=== PATIENT | female | born 1950 | race Caucasian/White ===

== ENCOUNTER 2023-03-16 14:46 | Emergency (ER) | payer MEDICARE, SELFPAY ==
[2023-03-16] VITALS (36 sets, daily range): BP systolic 94–131; BP diastolic 57–86; PULSE 62–125; RESP 14–31; TEMP 36.8–38.2; O2SAT 86–97; BMI 21.7
--- NOTE | 2023-03-16 15:08 | DI.RAD.S_ITS ---
PROCEDURE: XR CHEST 1V INDICATIONS: suspected sepsis TECHNIQUE: One view of the chest was acquired. COMPARISON: None. FINDINGS: Surgical changes and devices: None. Lungs and pleura: There is pulmonary vascular congestion. Small to moderate left pleural effusion and trace right pleural effusion are seen with bibasilar atelectasis. No definite focal infiltrate. No pneumothorax. Mediastinum: Mediastinal contours appear normal. Heart size is enlarged. Bones and chest wall: No suspicious bony lesions. Overlying soft tissues appear unremarkable. IMPRESSION: Finding is suggestive of CHF with left greater than right bilateral pleural effusion and bibasilar atelectasis. Pulmonary edema. No gross pneumothorax. Dictated by: Roberto Bay M.D. on 03/16/2023 at 16:26 Approved by: Roberto Bay M.D. on 03/16/2023 at 16:27
[2023-03-16 15:50] LABS: INR 1.1 (0.9-1.3); Prothrombin Time 13.1 SECONDS (10.1-12.7)
[2023-03-16 15:52] LABS: PTT Partial Thromboplastin Tim 24 SECONDS (26-36)
[2023-03-16 15:55] LABS: Add Manual Diff / Slide Review NO; Basophils Absolute Auto 100 /uL (0-100); Basophils Percent Auto 0.5 % (0-2); Eosinophils Absolute Auto 0 /uL (0-450); Eosinophils Percent Auto 0.1 % (2-4); Hematocrit 36.1 % (36-46); Hemoglobin 11.8 g/dL (12.0-16.0); Lymphocytes Absolute Auto 2400 /uL (1100-4500); Lymphocytes Percent Auto 16.4 % (25-40); Mean Corpuscular HGB Conc 32.7 % (30-36); Mean Corpuscular Hemoglobin 31.3 PG (26-34); Mean Corpuscular Volume 95.6 fL (80-100); Monocytes Absolute Auto 900 /uL (0-900); Monocytes Percent Auto 5.8 % (3-14); Neutrophils Absolute Auto 11600 /uL (1500-7000); Neutrophils Percent Auto 77.2 % (50-75); Platelet Count 191 X10^3/uL (150-400); Red Blood Cell Count 3.78 X10^6/uL (4.0-5.2); Red Cell Distribution Width 14.5 % (11.6-14.8)
[2023-03-16 15:57] LABS: Lipase 48 U/L (23-300)
[2023-03-16 15:58] LABS: Lactate (Lactic Acid) 2.1 mmol/L (0.7-2.1)
[2023-03-16 15:59] LABS: Alanine Aminotransferase 483 IU/L (<35); Albumin 3.9 g/dL (3.5-5.0); Albumin Globulin Ratio 1.4 (1.0-2.8); Alkaline Phosphatase 77 U/L (38-126); Aspartate Aminotransferase 417 IU/L (14-36); BUN Creatinine Ratio 24.5 (6-22); Bilirubin Total 0.7 mg/dL (0.2-1.3); Blood Urea Nitrogen 40 mg/dL (7-17); Calcium 8.6 mg/dL (8.4-10.2); Carbon Dioxide 29 mmol/L (22-32); Chloride 92 mmol/L (98-107); Estimated Glomerular Filt Rate 33 mL/min (>60); Globulin 2.8 g/dL (1.7-4.1); Glucose 144 mg/dL (80-110); HEMOLYSIS < 15 (0-50); Potassium 3.9 mmol/L (3.4-5.1); Sodium 131 mmol/L (137-145); Total Protein 6.7 g/dL (6.3-8.2)
[2023-03-16 16:01] LABS: D Dimer 2065 ng/ml (<500)
[2023-03-16 16:15] LABS: Procalcitonin 0.17 ng/mL (<0.5)
--- NOTE | 2023-03-16 16:44 | DI.CT.S_ITS ---
PROCEDURE: CT ANGIO CHEST PE PROTOCOL INDICATIONS: travel, cp, sob, + dimer TECHNIQUE: After the administration of intravenous contrast, 2 mm thick sections acquired from the pulmonary apices to the posterior costophrenic angles. 3-dimensional maximum intensity projection (MIP) coronal and sagittal reformats were then acquired through the thorax. For radiation dose reduction, the following was used: automated exposure control, adjustment of mA and/or kV according to patient size. COMPARISON: None. FINDINGS: Image quality: Excellent. Pulmonary arteries: Pulmonary arteries are normal in size, and demonstrate no intraluminal filling defects to suggest central pulmonary embolism. Lungs and pleura: Pleural apical scarring. Right upper lobe pulmonary nodule measuring 0.4 cm, (5/112). Mild opacity in the left lower lobe. Central airways are clear. Small bilateral pleural effusions. No pneumothorax. Mediastinum: Heart size is normal, without pericardial effusion. Moderate coronary artery calcifications. Shotty mediastinal lymph nodes. Thoracic aorta is normal in caliber and enhancement. Esophagus is normal in caliber, without hiatal hernia. Bones and chest wall: No suspicious bony lesions. Scoliosis. Ribs and thoracic spine appear intact throughout. Thyroid gland is unremarkable. No axillary or supraclavicular adenopathy. Abdomen: There is reflux of contrast into the intrahepatic veins. Trace free fluid adjacent to the liver. IMPRESSION: 1. No pulmonary embolism. 2. Mild opacity at the left lung base. This could represent atelectasis or pneumonia. 3. Small bilateral pleural effusions. 4. Shotty mediastinal lymph nodes. 5. Trace fluid adjacent to the liver. Source is uncertain. Dictated by: Maxx Hayes M.D. on 03/16/2023 at 18:36 Approved by: Maxx Hayes M.D. on 03/16/2023 at 18:42
[2023-03-16 16:55] LABS: Creatine Kinase 1068 U/L (30-135)
[2023-03-16] MEDS: SODIUM CHLORIDE 0.9% 1,000 ML 1000 ML IV (17:00)
[2023-03-16 17:07] LABS: NT-proBNP (BNP-Adult 18+) 15900 pg/mL (<125)
[2023-03-16 17:36] LABS: Reflexed Lactate in 2 Hours Y
[2023-03-16] MEDS: HEPARIN 5,000 UNIT/ML VIAL 4900 UNIT IV (18:08)
[2023-03-16] MEDS: HEPARIN DRIP 25,000 UNIT/500 ML IV.SOLN 14.696 UNIT IV (18:11)
[2023-03-16] MEDS: FUROSEMIDE 60 MG in SODIUM CHLORIDE 0.9% 50 ML 112 MG IV (18:43)
[2023-03-16] MEDS: ASPIRIN 81 MG CHEW TAB 324 MG PO (18:44)
--- NOTE | 2023-03-16 19:05 | ED.GENADULT ---
HPI - General Adult General Chief complaint: Weakness Stated complaint: lethargic, cant walk, feeling abnormal Time Seen by Provider: 03/16/23 17:58 Source: patient Mode of arrival: Wheelchair History of Present Illness HPI narrative: Patient is a 73-year-old female. [id number] diabetic, hypertension, hyperlipidemia. No prior cardiac history. Is here visiting from out of state. They have been traveling for the past several days. Patient stated that she started to generally not feel very well once they left her home state in [place] continue to worsen over the past couple days. She is had some confusion per her and [id number] who are at bedside. She is also had weakness to the point where she can get a bed this morning. Also had quite a bit of nausea. No fevers. No abdominal pain. No urinary symptoms. No chest pain. No shortness of breath. No skin rashes. Has not tried anything for her symptoms. Because she was so we can could get out of bed this morning is why she came into the emergency department. Related Data Home Medications Medication Instructions Recorded Confirmed ezetimibe 10 mg tablet 10 mg PO DAILY 03/16/23 03/16/23 metformin 500 mg tablet,extended 500 mg PO BID 03/16/23 03/16/23 release 24 hr ramipril 2.5 mg capsule 2.5 mg PO DAILY 03/16/23 03/16/23 temazepam 15 mg capsule 15 mg PO BEDTIME PRN Insomnia 03/16/23 03/16/23 Allergies Allergy/AdvReac Type Severity Reaction Status Date / Time Pgrvjhs-CFI-[id number] Reductase Allergy Unknown Verified 03/16/23 16:47 Inhibitor Review of Systems Review of Systems ROS Unobtainable: All systems reviewed & are unremarkable except as noted in HPI and below Patient History Medical History Hypertension Social History Smoking Status: Never smoker Smoking Status: Never smoker Substance Use Type: does not use Exam Initial Vital Signs Initial Vital Signs: Vital Signs Temperature 98.2 F 03/16/23 14:54 Pulse Rate 106 H 03/16/23 14:54 Respiratory Rate 16 03/16/23 14:54 Blood Pressure 94/58 L 03/16/23 14:54 Pulse Oximetry 93 03/16/23 14:54 Oxygen Delivery Method Room Air 03/16/23 14:54 Const General: cooperative, comfortable and No ill appearing HENMT Head: normal to inspection and normocephalic Resp Effort & Inspection: normal respiratory effort Auscultation: clear to auscultation bilaterally Cardio Rate: tachycardic Rhythm: regular rhythm GI Inspection: normal to inspection and non-distended Palpation: soft and No tender Skin General: no rashes or lesions noted Neuro General: patient alert, patient awake and moves all extremities Speech: speech normal Extrem General: No edema Psych Appearance: grossly normal and well kempt Scores HEART Score Heart Score history: Slightly Suspicious Heart Score EKG: Significant ST depression Heart Score Age: > or = 65 years old Heart Score risk factors: 1-2 risk factors Heart Score troponin: > 3 times normal limit Heart Score Total: 7 Course Orders Ordered: ED Orders 03/16/23 16:44 CT angio chest PE protocol Stat 03/16/23 18:21 COVID19 -Nasal RAPID Stat 03/16/23 19:02 Urine Culture Stat Urine Microscopic Stat 03/16/23 19:30 Troponin & CK Cardiac Panel Stat 03/16/23 19:49 Blood Culture Stat Discontinued Medications Acetaminophen (Acetaminophen 325 Mg Tablet) 650 mg PO NOW ONE Stop: 03/16/23 21:32 Last Admin: 03/16/23 21:35 Dose: 650 mg Documented By: TRAN Aspirin (Aspirin 81 Mg Chew Tab) 324 mg PO NOW ONE Stop: 03/16/23 18:02 Last Admin: 03/16/23 18:44 Dose: 324 mg Documented By: MARSHA Heparin Sodium (Porcine) (Heparin 5,000 Unit/Ml Vial) 4,900 unit 80 unit/kg (4900 unit) IV NOW ONE Stop: 03/16/23 17:22 Last Admin: 03/16/23 18:08 Dose: 4,000 unit Documented By: NR Sodium Chloride (Normal Saline 0.9%) 1,000 mls @ 1,000 mls/hr IV BOLUS ONE Stop: 03/16/23 16:07 Last Infusion: 03/16/23 18:44 Dose: 0 mls/hr Documented By: Admin: 03/16/23 17:00 Dose: 1,000 mls/hr Documented By: NR Heparin Sodium/Dextrose (Heparin Drip) 25,000 unit in 500 mls @ 14.696 mls/hr IV CONT KEVIN; Protocol Last Admin: 03/16/23 18:11 Dose: 12 units/kg/hr, 14.696 mls/hr Documented By: MARSHA Co-signed By: CHINO Ceftriaxone Sodium 1,000 mg/ (Sodium Chloride) 100 mls @ 200 mls/hr IV NOW ONE Stop: 03/16/23 18:00 Last Infusion: 03/16/23 19:58 Dose: 0 mls/hr Documented By: Admin: 03/16/23 19:19 Dose: 200 mls/hr Documented By: ISAIAS Furosemide 60 mg/ Sodium (Chloride) 56 mls @ 112 mls/hr IV NOW ONE Stop: 03/16/23 18:00 Last Infusion: 03/16/23 19:19 Dose: 0 mls/hr Documented By: Admin: 03/16/23 18:43 Dose: 112 mls/hr Documented By: MARSHA Ondansetron HCl (Ondansetron 4 Mg/2 Ml Inj) 4 mg IV NOW PRN PRN Reason: Nausea And Vomiting Ondansetron HCl (Ondansetron 4 Mg Odt) 4 mg SL NOW PRN PRN Reason: Nausea And Vomiting Vital Signs Vital signs: Vital Signs - 8 hr 03/16/23 17:15 03/16/23 17:16 03/16/23 17:16 Temperature Pulse Rate 125 H 118 H Respiratory Rate 21 Blood Pressure 111/78 Pulse Oximetry 97 96 Oxygen Delivery Method Oxygen Flow Rate 03/16/23 17:20 03/16/23 17:20 03/16/23 17:30 Temperature Pulse Rate 111 H 121 H Respiratory Rate 17 24 Blood Pressure 115/69 Pulse Oximetry 90 L Oxygen Delivery Method Oxygen Flow Rate 03/16/23 17:45 03/16/23 18:00 03/16/23 18:15 Temperature Pulse Rate 111 H 110 H 112 H Respiratory Rate 24 23 25 H Blood Pressure Pulse Oximetry 92 91 Oxygen Delivery Method Oxygen Flow Rate 03/16/23 18:30 03/16/23 18:33 03/16/23 18:33 Temperature Pulse Rate 112 H 113 H Respiratory Rate 21 21 Blood Pressure 120/70 Pulse Oximetry 89 L Oxygen Delivery Method Oxygen Flow Rate 03/16/23 18:40 03/16/23 18:40 03/16/23 18:45 Temperature Pulse Rate 116 H 112 H Respiratory Rate 23 28 H Blood Pressure 115/62 Pulse Oximetry 89 L 88 L Oxygen Delivery Method Oxygen Flow Rate 03/16/23 18:50 03/16/23 18:50 03/16/23 19:00 Temperature Pulse Rate 116 H Respiratory Rate 22 Blood Pressure 117/70 119/69 Pulse Oximetry 94 Oxygen Delivery Method Nasal Cannula Oxygen Flow Rate 2 03/16/23 19:00 03/16/23 19:10 03/16/23 19:10 Temperature Pulse Rate 122 H 116 H Respiratory Rate 31 H 27 H Blood Pressure 131/75 Pulse Oximetry 95 96 Oxygen Delivery Method Oxygen Flow Rate 03/16/23 19:15 03/16/23 19:20 03/16/23 19:20 Temperature Pulse Rate 116 H 111 H Respiratory Rate 20 28 H Blood Pressure 117/72 Pulse Oximetry 94 95 Oxygen Delivery Method Oxygen Flow Rate 03/16/23 20:00 03/16/23 19:30 03/16/23 19:40 Temperature Pulse Rate Respiratory Rate 16 Blood Pressure 128/76 119/86 Pulse Oximetry 93 Oxygen Delivery Method Nasal Cannula Oxygen Flow Rate 3 03/16/23 19:50 03/16/23 19:50 03/16/23 20:00 Temperature Pulse Rate 110 H Respiratory Rate 21 Blood Pressure 109/68 105/61 Pulse Oximetry 86 L Oxygen Delivery Method Nasal Cannula Oxygen Flow Rate 2 03/16/23 20:00 03/16/23 20:10 03/16/23 20:10 Temperature Pulse Rate 107 H 106 H Respiratory Rate 23 18 Blood Pressure 104/69 Pulse Oximetry 93 91 Oxygen Delivery Method Oxygen Flow Rate 03/16/23 20:30 03/16/23 20:40 03/16/23 20:40 Temperature 100.8 F H Pulse Rate 104 H 103 H Respiratory Rate 16 19 Blood Pressure 95/63 96/65 Pulse Oximetry 95 94 Oxygen Delivery Method Nasal Cannula Oxygen Flow Rate 3 03/16/23 20:45 03/16/23 20:50 03/16/23 20:50 Temperature Pulse Rate 105 H 106 H Respiratory Rate 21 16 Blood Pressure 94/57 L Pulse Oximetry 95 95 Oxygen Delivery Method Oxygen Flow Rate 03/16/23 21:00 03/16/23 21:00 03/16/23 21:35 Temperature 100.6 F H Pulse Rate 103 H Respiratory Rate 21 Blood Pressure 94/66 Pulse Oximetry 96 Oxygen Delivery Method Oxygen Flow Rate 03/16/23 22:07 03/16/23 21:15 03/16/23 21:30 Temperature 100.6 F H 100.6 F H Pulse Rate 101 H Respiratory Rate 14 Blood Pressure 94/63 Pulse Oximetry 96 Oxygen Delivery Method Oxygen Flow Rate 03/16/23 21:30 03/16/23 21:45 03/16/23 22:00 Temperature 100.6 F H 100.6 F H Pulse Rate 101 H 104 H Respiratory Rate 18 20 Blood Pressure 95/68 Pulse Oximetry 97 97 Oxygen Delivery Method Oxygen Flow Rate 03/16/23 22:00 03/16/23 22:15 Temperature 100.4 F H 100.6 F H Pulse Rate 97 H Respiratory Rate 25 H Blood Pressure Pulse Oximetry 96 Oxygen Delivery Method Nasal Cannula Oxygen Flow Rate 3 Medical Decision Making Medical Records Medical records reviewed: Yes I reviewed the patient's medical records. Lab Data Lab results reviewed: Yes I reviewed the patient's lab results. 03/16/23 15:15 03/16/23 15:15 Labs: Lab Results 03/16/23 03/16/23 03/16/23 Range/Units 15:15 15:15 15:15 WBC 15.0 H (4.5-11.0) X10^3/uL RBC 3.78 L (4.0-5.2) X10^6/uL Hgb 11.8 L (12.0-16.0) g/dL Hct 36.1 (36-46) % MCV 95.6 (80-100) fL MCH 31.3 (26-34) PG MCHC 32.7 (30-36) % RDW 14.5 (11.6-14.8) % Plt Count 191 (150-400) X10^3/uL Neut % (Auto) 77.2 H (50-75) % Lymph % (Auto) 16.4 L (25-40) % [place] % (Auto) 5.8 (3-14) % Eos % (Auto) 0.1 L (2-4) % Baso % (Auto) 0.5 (0-2) % Neut # (Auto) 59684 H (9102-4320) /uL Lymph # (Auto) 2400 (7999-0595) /uL [place] # (Auto) 900 (0-900) /uL Eos # (Auto) 0 (0-450) /uL Baso # (Auto) 100 (0-100) /uL PT 13.1 H (10.1-12.7) SECONDS INR 1.1 (0.9-1.3) APTT 24 L (26-36) SECONDS D-Dimer (<500) ng/ml Sodium 131 L (137-145) mmol/L Potassium 3.9 (3.4-5.1) mmol/L Chloride 92 L (98-107) mmol/L Carbon Dioxide 29 (22-32) mmol/L BUN 40 H (7-17) mg/dL Creatinine 1.63 H (0.52-1.04) mg/dL Estimated GFR 33 L (>60) mL/min BUN/Creatinine Ratio 24.5 H (6-22) Glucose 144 H (80-110) mg/dL Lactate (0.7-2.1) mmol/L Calcium 8.6 (8.4-10.2) mg/dL Magnesium (1.6-2.3) mg/dL Total Bilirubin 0.7 (0.2-1.3) mg/dL AST 417 H (14-36) IU/L ALT 483 H (<35) IU/L Alkaline Phosphatase 77 (38-126) U/L Total Creatine Kinase (30-135) U/L CK-MB (CK-2) CK-MB (CK-2) Rel Index Troponin I (0.01-0.034) ng/mL NT-Pro-B Natriuret Pep (<125) pg/mL Total Protein 6.7 (6.3-8.2) g/dL Albumin 3.9 (3.5-5.0) g/dL Globulin 2.8 (1.7-4.1) g/dL Albumin/Globulin Ratio 1.4 (1.0-2.8) Lipase (23-300) U/L Procalcitonin (<0.5) ng/mL Urine RBC (0-5/HPF) Urine WBC (0-5/HPF) Ur Squamous Epith Cells (0-5/HPF) Urine Bacteria (None) Hyaline Casts (None) Ur Culture Indicated? SARS-CoV-2 (PCR) (Negative) 06/20/23 06/20/23 06/20/23 Range/Units 15:15 15:15 15:15 WBC (4.5-11.0) X10^3/uL RBC (4.0-5.2) X10^6/uL Hgb (12.0-16.0) g/dL Hct (36-46) % MCV (80-100) fL MCH (26-34) PG MCHC (30-36) % RDW (11.6-14.8) % Plt Count (150-400) X10^3/uL Neut % (Auto) (50-75) % Lymph % (Auto) (25-40) % [place] % (Auto) (3-14) % Eos % (Auto) (2-4) % Baso % (Auto) (0-2) % Neut # (Auto) (0438-1364) /uL Lymph # (Auto) (0463-9250) /uL [place] # (Auto) (0-900) /uL Eos # (Auto) (0-450) /uL Baso # (Auto) (0-100) /uL PT (10.1-12.7) SECONDS INR (0.9-1.3) APTT (26-36) SECONDS D-Dimer 2065 H (<500) ng/ml Sodium (137-145) mmol/L Potassium (3.4-5.1) mmol/L Chloride (98-107) mmol/L Carbon Dioxide (22-32) mmol/L BUN (7-17) mg/dL Creatinine (0.52-1.04) mg/dL Estimated GFR (>60) mL/min BUN/Creatinine Ratio (6-22) Glucose (80-110) mg/dL Lactate 2.1 (0.7-2.1) mmol/L Calcium (8.4-10.2) mg/dL Magnesium (1.6-2.3) mg/dL Total Bilirubin (0.2-1.3) mg/dL AST (14-36) IU/L ALT (<35) IU/L Alkaline Phosphatase (38-126) U/L Total Creatine Kinase (30-135) U/L CK-MB (CK-2) CK-MB (CK-2) Rel Index Troponin I (0.01-0.034) ng/mL NT-Pro-B Natriuret Pep (<125) pg/mL Total Protein (6.3-8.2) g/dL Albumin (3.5-5.0) g/dL Globulin (1.7-4.1) g/dL Albumin/Globulin Ratio (1.0-2.8) Lipase 48 (23-300) U/L Procalcitonin 0.17 (<0.5) ng/mL Urine RBC (0-5/HPF) Urine WBC (0-5/HPF) Ur Squamous Epith Cells (0-5/HPF) Urine Bacteria (None) Hyaline Casts (None) Ur Culture Indicated? SARS-CoV-2 (PCR) (Negative) 03/16/23 03/16/23 03/16/23 Range/Units 15:15 15:15 18:21 WBC (4.5-11.0) X10^3/uL RBC (4.0-5.2) X10^6/uL Hgb (12.0-16.0) g/dL Hct (36-46) % MCV (80-100) fL MCH (26-34) PG MCHC (30-36) % RDW (11.6-14.8) % Plt Count (150-400) X10^3/uL Neut % (Auto) (50-75) % Lymph % (Auto) (25-40) % [place] % (Auto) (3-14) % Eos % (Auto) (2-4) % Baso % (Auto) (0-2) % Neut # (Auto) (9655-8414) /uL Lymph # (Auto) (3598-8868) /uL [place] # (Auto) (0-900) /uL Eos # (Auto) (0-450) /uL Baso # (Auto) (0-100) /uL PT (10.1-12.7) SECONDS INR (0.9-1.3) APTT (26-36) SECONDS D-Dimer (<500) ng/ml Sodium (137-145) mmol/L Potassium (3.4-5.1) mmol/L Chloride (98-107) mmol/L Carbon Dioxide (22-32) mmol/L BUN (7-17) mg/dL Creatinine (0.52-1.04) mg/dL Estimated GFR (>60) mL/min BUN/Creatinine Ratio (6-22) Glucose (80-110) mg/dL Lactate (0.7-2.1) mmol/L Calcium (8.4-10.2) mg/dL Magnesium 1.6 (1.6-2.3) mg/dL Total Bilirubin (0.2-1.3) mg/dL AST (14-36) IU/L ALT (<35) IU/L Alkaline Phosphatase (38-126) U/L Total Creatine Kinase 1068 H (30-135) U/L CK-MB (CK-2) TNP CK-MB (CK-2) Rel Index TNP Troponin I 3.790 H* (0.01-0.034) ng/mL NT-Pro-B Natriuret Pep 43111 H (<125) pg/mL Total Protein (6.3-8.2) g/dL Albumin (3.5-5.0) g/dL Globulin (1.7-4.1) g/dL Albumin/Globulin Ratio (1.0-2.8) Lipase (23-300) U/L Procalcitonin (<0.5) ng/mL Urine RBC (0-5/HPF) Urine WBC (0-5/HPF) Ur Squamous Epith Cells (0-5/HPF) Urine Bacteria (None) Hyaline Casts (None) Ur Culture Indicated? SARS-CoV-2 (PCR) Negative (Negative) 03/16/23 03/16/23 03/16/23 Range/Units 19:02 19:30 20:18 WBC (4.5-11.0) X10^3/uL RBC (4.0-5.2) X10^6/uL Hgb (12.0-16.0) g/dL Hct (36-46) % MCV (80-100) fL MCH (26-34) PG MCHC (30-36) % RDW (11.6-14.8) % Plt Count (150-400) X10^3/uL Neut % (Auto) (50-75) % Lymph % (Auto) (25-40) % [place] % (Auto) (3-14) % Eos % (Auto) (2-4) % Baso % (Auto) (0-2) % Neut # (Auto) (7756-5399) /uL Lymph # (Auto) (6928-3479) /uL [place] # (Auto) (0-900) /uL Eos # (Auto) (0-450) /uL Baso # (Auto) (0-100) /uL PT (10.1-12.7) SECONDS INR (0.9-1.3) APTT (26-36) SECONDS D-Dimer (<500) ng/ml Sodium (137-145) mmol/L Potassium (3.4-5.1) mmol/L Chloride (98-107) mmol/L Carbon Dioxide (22-32) mmol/L BUN (7-17) mg/dL Creatinine (0.52-1.04) mg/dL Estimated GFR (>60) mL/min BUN/Creatinine Ratio (6-22) Glucose (80-110) mg/dL Lactate 1.1 (0.7-2.1) mmol/L Calcium (8.4-10.2) mg/dL Magnesium (1.6-2.3) mg/dL Total Bilirubin (0.2-1.3) mg/dL AST (14-36) IU/L ALT (<35) IU/L Alkaline Phosphatase (38-126) U/L Total Creatine Kinase 969 H (30-135) U/L CK-MB (CK-2) TNP CK-MB (CK-2) Rel Index TNP Troponin I 3.240 H* (0.01-0.034) ng/mL NT-Pro-B Natriuret Pep (<125) pg/mL Total Protein (6.3-8.2) g/dL Albumin (3.5-5.0) g/dL Globulin (1.7-4.1) g/dL Albumin/Globulin Ratio (1.0-2.8) Lipase (23-300) U/L Procalcitonin (<0.5) ng/mL Urine RBC None seen (0-5/HPF) Urine WBC 1-5/hpf (0-5/HPF) Ur Squamous Epith Cells None seen (0-5/HPF) Urine Bacteria Many (>30) H (None) Hyaline Casts 0-1/lpf (None) Ur Culture Indicated? Specimen cultured SARS-CoV-2 (PCR) (Negative) Urine Dip Bedside Urine Glucose Negative Bedside Urine Bilirubin - Negative Bedside Urine Ketone - Negative Urine Specific [place] 1.020 Bedside Urine Occult Blood ++ Bedside Urine pH 5.5 Bedside Urine Protein +/- 15 Bedside Urine Urobilinogen - Negative Bedside Urine Nitrite + Positive Bedside Urine Leukocytes - Negative Esterase Point of care testing: Urine Dip Bedside Urine Glucose Negative Bedside Urine Bilirubin - Negative Bedside Urine Ketone - Negative Urine Specific [place] 1.020 Bedside Urine Occult Blood ++ Bedside Urine pH 5.5 Bedside Urine Protein +/- 15 Bedside Urine Urobilinogen - Negative Bedside Urine Nitrite + Positive Bedside Urine Leukocytes - Negative Esterase Imaging Data Chest x-ray: Radiologist's Impression: PROCEDURE:? XR CHEST 1V ? INDICATIONS:? suspected sepsis ? TECHNIQUE:? One view of the chest was acquired.? ? COMPARISON:? None. ? FINDINGS:? ? Surgical changes and devices:? None.? ? Lungs and pleura:? There is pulmonary vascular congestion.? Small to moderate left pleural effusion and trace right pleural effusion are seen with bibasilar atelectasis.? No definite focal infiltrate.? No pneumothorax. ? Mediastinum:? Mediastinal contours appear normal.? Heart size is enlarged.? ? Bones and chest wall:? No suspicious bony lesions.? Overlying soft tissues appear unremarkable.? ? IMPRESSION:? Finding is suggestive of CHF with left greater than right bilateral pleural effusion and bibasilar atelectasis.? Pulmonary edema.? No gross pneumothorax. CT scan - chest: Radiologist's Impression: ROCEDURE:? CT ANGIO CHEST PE PROTOCOL ? INDICATIONS:? travel, cp, sob, + dimer ? TECHNIQUE:? After the administration of intravenous contrast, 2 mm thick sections acquired from the pulmonary apices to the posterior costophrenic angles.? 3-dimensional maximum intensity projection (MIP) coronal and sagittal reformats were then acquired through the thorax.? For radiation dose reduction, the following was used:? automated exposure control, adjustment of mA and/or kV according to patient size.? ? COMPARISON:? None. ? FINDINGS:? Image quality:? Excellent.? ? Pulmonary arteries:? Pulmonary arteries are normal in size, and demonstrate no intraluminal filling defects to suggest central pulmonary embolism.? ? Lungs and pleura:? Pleural apical scarring.? Right upper lobe pulmonary nodule measuring 0.4 cm, (/112).? Mild opacity in the left lower lobe.? Central airways are clear.? Small bilateral pleural effusions.? No pneumothorax. ? Mediastinum:? Heart size is normal, without pericardial effusion.? Moderate coronary artery calcifications.? Shotty mediastinal lymph nodes.? Thoracic aorta is normal in caliber and enhancement.? Esophagus is normal in caliber, without hiatal hernia.? ? Bones and chest wall:? No suspicious bony lesions.? Scoliosis.? Ribs and thoracic spine appear intact throughout.? Thyroid gland is unremarkable.? No axillary or supraclavicular adenopathy.? ? Abdomen:? There is reflux of contrast into the intrahepatic veins.? Trace free fluid adjacent to the liver. ? IMPRESSION:? 1. No pulmonary embolism. ? 2. Mild opacity at the left lung base.? This could represent atelectasis or pneumonia. ? 3. Small bilateral pleural effusions. ? 4. Shotty mediastinal lymph nodes. ? 5. Trace fluid adjacent to the liver.? Source is uncertain. ECG Data Attestation: I personally reviewed and interpreted this ECG as follows: Interpretation: Presentation EKG Sinus tachycardia Ventricular rate of 108 Normal axis Normal QRS ST depression V4 V5 V6 Repeat EKG Sinus tachycardia Ventricular rate [address] depression V4 V5 V6 MDM Narrative Medical decision making narrative: Patient has no chest pain no shortness of breath however she does have ST depressions laterally on her EKG. She also has a positive troponin. Chest x-ray shows potential pulmonary edema. CTA of the chest shows no pulmonary embolism but potential left-sided pneumonia. She was given antibiotics for this. She was also given aspirin. Was started on heparin. She also has nitrite positive urine. Rocephin should cover both pneumonia and UTI. She is never had risk stratification testing. Unsure whether or not patient's elevated troponin is secondary to pneumonia/UTI and sepsis versus a primary cardiac etiology however regardless patient does need transfer to a facility with cardiac capability. I did discuss the case with construction trades teacher at [facility]. I then discussed the case with Dr. Nunez who is the hospitalist at [facility] who accepts the patient for transfer. Patient has never been hypotensive. Lactate negative. Procalcitonin is negative. Will provide gentle hydration. Her BNP is elevated however is not clinically in heart failure. Patient is stable for transport. Discharge Plan Departure Patient Disposition: [facility] Clinical Impression: Non-ST elevation [place] (NSTEMI), Pneumonia, Urinary tract infection Prescriptions: No Action temazepam 15 mg capsule 15 mg PO BEDTIME PRN (Reason: Insomnia) Patient Comments: TAKE ONE CAPSULE BY MOUTH ONE TIME DAILY AT BEDTIME NEEDED FOR SLEEP ramipril 2.5 mg capsule 2.5 mg PO DAILY Patient Comments: TAKE ONE CAPSULE BY MOUTH ONE TIME DAILY metformin 500 mg tablet extended release 24 hr 500 mg PO BID Patient Comments: TAKE ONE TABLET BY MOUTH TWICE A DAY ezetimibe 10 mg tablet 10 mg PO DAILY Patient Comments: TAKE ONE TABLET BY MOUTH ONE TIME DAILY
[2023-03-16] MEDS: cefTRIAXone 1,000 MG in SODIUM CHLORIDE 0.9% 100 ML 200 MG IV (19:19)
[2023-03-16 19:25] LABS: COVID19 -Nasal RAPID Negative (Negative)
[2023-03-16 19:37] LABS: RBC Urine None Seen (0-5/HPF)
[2023-03-16 19:38] LABS: Bacteria Urine Many (>30); Culture Indicated Urine Specimen Cultured; Hyaline Casts Urine 0-1/LPF; Squamous Epithelial Cell Urine None Seen (0-5/HPF); WBC Urine 1-5/HPF (0-5/HPF)
[2023-03-16 19:47] LABS: Magnesium 1.6 mg/dL (1.6-2.3)
[2023-03-16 19:59] LABS: Creatine Kinase 969 U/L (30-135)
[2023-03-16 20:44] LABS: Lactate 2HR (Lactic Acid Rflx) 1.1 mmol/L (0.7-2.1)
[2023-03-16] MEDS: ACETAMINOPHEN 325 MG TABLET 650 MG PO (21:35)
--- NOTE | 2023-03-16 22:30 | PC.NURSE ---
Patient transferred to [facility] at 2230. Transferred by [facility], CCT RN, Edson given bedside report and all questions asked. Heparin continues en route. EMMA Scruggs received [id number] at 2225, she will be the receiving RN at [facility]. Unit phone number is [phone].
== END 2023-03-16 22:30 | disposition short-term general hospital (02) ==
PROVIDERS: Emergency Medicine; Emergency Provider Emergency Medicine
DX: I21.4 Non-ST elevation (NSTEMI) myocardial infarction (principal); J18.9 Pneumonia, unspecified organism; N39.0 Urinary tract infection, site not specified; R41.0 Disorientation, unspecified; Z20.822 Contact with and (suspected) exposure to COVID-19
CPT/HCPCS: 36415; 71045; 71275; 80053; 81003; 81015; 82550; 83605; 83690; 83735; 83880; 84145; 84484; 85025; 85379; 85610; 85730; 87040; 87077; 87086; 87186; 87635; 93005; 96365; 96366; 96368; 99285; C9803; J0696; J1644; J1940